=== PATIENT | female | born 2000 | race Caucasian/White ===

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

== ENCOUNTER 2021-03-19 00:18 | Emergency (ER) | payer OTHER ==
[~2021-03-19] VITALS: Ht 162.6 cm; Wt 78.5 kg
[~2021-03-19 00:18] MED LIST changes: +HYDROCODON-ACE1 EAC7 PO; +IBUPROFEN 800800 M1 PO
[2021-03-19 03:13] VITALS: BP 108/64
== END 2021-03-19 03:13 | disposition home or self-care (01) ==
LOC: M.ERS 00:18
DX: S93.602A Unspecified sprain of left foot, initial encounter (principal); W18.49XA Other slipping, tripping and stumbling without falling, initial encounter; Y93.89 Activity, other specified; Y92.89 Other specified places as the place of occurrence of the external cause; Y99.8 Other external cause status